=== PATIENT | female | born 1990 | race Caucasian/White ===

== ENCOUNTER 2022-03-14 09:04 | Emergency (ER) | payer OTHER ==
[~2022-03-14] VITALS: Ht 165.1 cm; Wt 77.3 kg
[2022-03-14] MEDS ORDERED: DiphenhydrAMINE HCL 25 MG CAPSULE PO ONE (09:45)
[2022-03-14] MEDS ORDERED: CIPR10DR10 OU (09:52)
[2022-03-14 10:02] VITALS: BP 119/80
== END 2022-03-14 10:20 | disposition home or self-care (01) ==
LOC: EMS 09:06
DX: H10.13 Acute atopic conjunctivitis, bilateral (principal); F17.210 Nicotine dependence, cigarettes, uncomplicated
CPT/HCPCS: 99283

== ENCOUNTER 2024-01-28 23:49 | Inpatient (IN) | payer MEDICAID, OTHER ==
[~2024-01-28] VITALS: Ht 165.1 cm; Wt 73.3 kg
[~2024-01-28 23:49] MED LIST: CIPR10DR10 OU
[2024-01-29 02:20] LABS: BASOPHILS % (AUTO) 0.9 % (0.0-2.0); EOSINOPHILS % (AUTO) 1.9 % (1.0-6.0); HEMATOCRIT 38.6 % (36-46); HEMOGLOBIN 12.8 g/dL (12.0-16.0); LYMPHOCYTES # (AUTO) 3.7 K/uL (1.0-4.8); LYMPHOCYTES % (AUTO) 40.9 % (22.0-44.0); MEAN CORPUSCULAR HEMOGLOBIN 30.4 pg (26.0-34.0); MEAN CORPUSCULAR HGB CONC 33.2 G/dL (31.0-37.0); MEAN CORPUSCULAR VOLUME 92 fL (80-100); MONOCYTES # (AUTO) 0.8 K/uL (0.1-1.0); MONOCYTES % (AUTO) 9.3 % (2.0-9.0); NEUTROPHILS # (AUTO) 4.2 K/uL (1.8-7.7); PLATELET COUNT (AUTO) 353 K/uL (150-450); RED BLOOD CELL COUNT(AUTO) 4.21 MIL/uL (4.00-5.20); RED CELL DISTRIBUTION WIDTH 16.6 % (11.5-14.5)
[2024-01-29] MEDS: LORazepam 2 MG TABLET PO ONE (02:20)
[2024-01-29 02:28] LABS: ANION GAP 11 mmol/L (8-16); CALCIUM, TOTAL 9.1 mg/dL (8.8-10.5); CARBON DIOXIDE 30 mmol/L (22-29); CHLORIDE 101 mmol/L (98-107); CREATININE 0.64 mg/dL (0.60-1.30); GLOMERULAR FILTR. RATE CALC > 60 mL/min (>60); GLUCOSE,RANDOM 114 mg/dL (70-110); POTASSIUM 3.3 mmol/L (3.5-5.1); SODIUM SERUM 142 mmol/L (136-145); UREA NITROGEN, BLOOD 4 mg/dL (7-18)
[2024-01-29 02:34] LABS: ALANINE AMINOTRANSFERASE 59 U/L (12-78); ALBUMIN 3.2 g/dL (3.4-5.0); ALKALINE PHOSPHATASE 112 U/L (46-116); ASPARTATE AMINOTRANSFERASE 55 U/L (15-37); BILIRUBIN,TOTAL 0.1 mg/dL (0.1-1.0)
[2024-01-29 02:35] LABS: ALCOHOL, BLOOD (SERUM) 290 mg/dL (0-10)
[2024-01-29 03:02] LABS: COVID AG,FIA SOURCE NASAL SWAB
[2024-01-29] MEDS: POTASSIUM CHLORIDE 20 MEQ ER TABLET PO ONE ×2 (03:07→18:01)
[2024-01-29 03:22] LABS: SARS-COV2 (COVID) ANTIGEN,FIA Negative (Negative)
[2024-01-29 12:44] VITALS: BP 149/96; PULSE 117; RESP 18; TEMP 98; O2SAT 98
[2024-01-29] MEDS: LORazepam 2 MG TABLET PO PRN (13:25)
[2024-01-29] MEDS ORDERED: ALBUTEROL SULFATE HFA 90 MCG/PUFF 8 GM INHALER IH PRN (17:30)
[2024-01-29] MEDS ORDERED: OMEPRAZOLE 20 MG CAPSULE PO PRN (17:30)
[2024-01-29] MEDS ORDERED: ONDANSETRON HCL 4 MG TABLET PO PRN (17:30)
[2024-01-29] MEDS ORDERED: PETROLATUM,WHITE 28 GM JELLY TP PRN (17:30)
[2024-01-29] MEDS ORDERED: DOCUSATE SODIUM 100 MG CAPSULE PO PRN (17:30)
[2024-01-29] MEDS ORDERED: MAGNESIUM HYDROXIDE SUSPENSION 30 ML UDCUP PO PRN (17:30)
[2024-01-29] MEDS ORDERED: IBUPROFEN 600 MG TABLET PO PRN (17:30)
[2024-01-29] MEDS ORDERED: BENZOCAINE/MENTHOL LOZENGE PO PRN (17:30)
[2024-01-29] MEDS ORDERED: ACETAMINOPHEN 325 MG TABLET PO PRN (17:30)
[2024-01-29] MEDS ORDERED: CloNIDine HCL 0.1 MG TABLET PO PRN (17:30)
[2024-01-29] MEDS ORDERED: BACITRACIN 28 GM OINTMENT TP PRN (17:30)
[2024-01-29 20:55] VITALS: BP 150/100; PULSE 110; RESP 18; TEMP 97.8; O2SAT 97
[2024-01-30] VITALS (7 sets, daily range): BP systolic 141–149; BP diastolic 98–104; PULSE 97–110; RESP 18–20; TEMP 97.3–98.4; O2SAT 97–99
[2024-01-30 15:19] LABS: CHOL/HDL RATIO 2.3 (3.9-5.7); POTASSIUM 3.2 mmol/L (3.5-5.1)
[2024-01-30] MEDS: ChlordiazePOXIDE HCL 25 MG CAPSULE PO PRN (18:11)
[2024-01-30] MEDS ORDERED: CYANOCOBALAMIN 1,000 MCG/ML VIAL IM ONE (19:00)
[2024-01-31] VITALS (7 sets, daily range): BP systolic 143–150; BP diastolic 96–100; PULSE 98–100; RESP 18–20; TEMP 97.5; O2SAT 99–100
[2024-01-31] MEDS ORDERED: ChlordiazePOXIDE HCL 25 MG CAPSULE PO PRN (07:00)
[2024-01-31] MEDS: FOLIC ACID 1 MG TABLET PO SCH (08:55)
[2024-01-31] MEDS: ChlordiazePOXIDE HCL 25 MG CAPSULE PO SCH (08:56)
[2024-01-31] MEDS: MULTIVITAMINS, THERAPEUTIC TABLET PO SCH (08:56)
[2024-01-31] MEDS: THIAMINE 100 MG TABLET PO SCH (08:58)
[2024-01-31] MEDS: DiphenhydrAMINE HCL 50 MG/ML VIAL IM ONE (10:17)
[2024-01-31] MEDS ORDERED: ChlordiazePOXIDE HCL 10 MG CAPSULE PO PRN (10:30)
[2024-01-31] MEDS: ChlordiazePOXIDE HCL 10 MG CAPSULE PO SCH (13:30)
[2024-01-31] MEDS: HALOPERIDOL 5 MG TABLET PO PRN (15:56)
[2024-01-31 16:45] LABS: APPEARANCE,URINE TURBID (CLEAR); BILIRUBIN,URINE NEGATIVE (NEGATIVE); COLOR,URINE YELLOW (YELLOW); GLUCOSE, URINE (UA) NEGATIVE (NEGATIVE); KETONES,URINE NEGATIVE (NEGATIVE); LEUKOCYTE ESTERASE ,URINE TRACE (NEGATIVE); NITRATE,URINE NEGATIVE (NEGATIVE); OCCULT BLOOD,URINE NEGATIVE (NEGATIVE); PH,URINE 7.5 (5.0-8.0); PH,URINE DRUG SCREEN 7.5 (5.0-8.0); PROTEIN,URINE 30-70 mg/dL (NEGATIVE); SPECIFIC GRAVITIY, URINE 1.016 (1.003-1.030); UROBILINOGEN,URINE <=1.0 mg/dL (<=1.0)
[2024-01-31 17:01] LABS: ALCOHOL, URINE DRUG SCREEN NEGATIVE (NEGATIVE); AMPHET/METH SCREEN,URINE NEGATIVE (NEGATIVE); BARBITURATE SCREEN, URINE NEGATIVE (NEGATIVE); BENZODIAZEPINES SCREEN,URINE POSITIVE (NEGATIVE); CANNABINOID SCREEN,URINE POSITIVE (NEGATIVE); COCAINE SCREEN,URINE NEGATIVE (NEGATIVE); METHADONE SCREEN, URINE NEGATIVE (NEGATIVE); OPIATE SCREEN,URINE NEGATIVE (NEGATIVE); PHENCYCLIDINE SCREEN,URINE NEGATIVE (NEGATIVE)
[2024-01-31] MEDS: LITHIUM CARBONATE 300 MG CAPSULE PO SCH (17:02)
[2024-01-31 17:04] LABS: BACTERIA,URINE Few /HPF (None Seen); RBC,URINE 0-2 /HPF (0-2); SQUAMOUS EPITHELIAL CELL,UR Moderate /LPF (None Seen); WBC,URINE 0-2 /HPF (0-5)
[2024-01-31] MEDS: PROPRANOLOL HCL 20 MG TABLET PO SCH (17:12)
[2024-01-31] MEDS: ZOLPIDEM TARTRATE 10 MG TABLET PO PRN (21:25)
[2024-02-01] MEDS ORDERED: ChlordiazePOXIDE HCL 10 MG CAPSULE PO PRN (07:00)
[2024-02-01] MEDS: POTASSIUM CHLORIDE 20 MEQ ER TABLET PO ONE (09:09)
[2024-02-01 11:23] VITALS: BP 125/88; PULSE 99; RESP 18; TEMP 97.3; O2SAT 98
[2024-02-01 11:36] VITALS: BP 125/88; PULSE 99; RESP 18; TEMP 97.3; O2SAT 98
[2024-02-01] MEDS: MAG HYDROX/ALUMINUM HYD/SIMETH ES 30 ML SUSPENSION UDCUP PO PRN (12:54)
[2024-02-01] MEDS: LOPERAMIDE HCL 2 MG CAPSULE PO PRN (13:15)
[2024-02-01] MEDS ORDERED: PROP20TA18 PO (13:26)
[2024-02-01] MEDS ORDERED: LITH300C3 PO (13:26)
[2024-02-02] MEDS ORDERED: ChlordiazePOXIDE HCL 10 MG CAPSULE PO PRN (07:00)
[2024-02-02] MEDS ORDERED: ChlordiazePOXIDE HCL 10 MG CAPSULE PO SCH (09:00)
[2024-02-03] MEDS ORDERED: ChlordiazePOXIDE HCL 10 MG CAPSULE PO PRN (07:00)
== END 2024-02-01 14:12 | disposition home or self-care (01) | DRG 754 ==
LOC: EMS 23:50 → 3EI 01-29 10:02
PROVIDERS: ADMIT Psychiatry & Neurology Psychiatry; ATTEND Psychiatry & Neurology Psychiatry
DX: F32.9 Major depressive disorder, single episode, unspecified (principal); F22 Delusional disorders; F10.229 Alcohol dependence with intoxication, unspecified; F41.9 Anxiety disorder, unspecified; G47.00 Insomnia, unspecified; Z20.822 Contact with and (suspected) exposure to COVID-19; K59.00 Constipation, unspecified; F12.90 Cannabis use, unspecified, uncomplicated; R03.0 Elevated blood-pressure reading, without diagnosis of hypertension; Y90.8 Blood alcohol level of 240 mg/100 ml or more; Z87.891 Personal history of nicotine dependence; Z59.00 Homelessness unspecified
CPT/HCPCS: 80053; 80061; 80307; 81001; 84132; 84703; 85025; 99285; G0480; J1200

== ENCOUNTER 2025-08-12 13:06 | Inpatient (IN) | payer MEDICAID ==
[~2025-08-12] VITALS: Ht 165.1 cm; Wt 75.0 kg
[~2025-08-12 13:06] MED LIST changes: -CIPR10DR10 OU; +LITH300C3 PO; +PROP20TA18 PO
[2025-08-13 00:09] VITALS: BP 128/95; PULSE 107; RESP 20; TEMP 98.9; O2SAT 97
[2025-08-13] MEDS ORDERED: PETROLATUM,WHITE 28 GM JELLY TP PRN (06:00)
[2025-08-13] MEDS ORDERED: ALBUTEROL SULFATE HFA 90 MCG/PUFF 8 GM INHALER IH PRN (06:00)
[2025-08-13] MEDS ORDERED: IBUPROFEN 600 MG TABLET PO PRN (06:00)
[2025-08-13] MEDS ORDERED: BACITRACIN 28 GM OINTMENT TP PRN (06:00)
[2025-08-13] MEDS ORDERED: ACETAMINOPHEN 325 MG TABLET PO PRN (06:00)
[2025-08-13] MEDS ORDERED: MAG HYDROX/ALUMINUM HYD/SIMETH ES 30 ML SUSPENSION UDCUP PO PRN (06:00)
[2025-08-13] MEDS ORDERED: MAGNESIUM HYDROXIDE SUSPENSION 30 ML UDCUP PO PRN (06:00)
[2025-08-13] MEDS ORDERED: LOPERAMIDE HCL 2 MG CAPSULE PO PRN (06:00)
[2025-08-13] MEDS ORDERED: BENZOCAINE/MENTHOL [CEPACOL] LOZENGE PO PRN (06:00)
[2025-08-13] MEDS ORDERED: OMEPRAZOLE 20 MG CAPSULE PO PRN (06:00)
[2025-08-13] MEDS ORDERED: ONDANSETRON 4 MG TABLET PO PRN (06:00)
[2025-08-13] MEDS ORDERED: NICOTINE POLACRILEX 4 MG LOZENGE PO PRN (06:00)
[2025-08-13] MEDS ORDERED: DOCUSATE SODIUM 100 MG CAPSULE PO PRN (06:00)
[2025-08-13 08:21] VITALS: RESP 18
[2025-08-13] MEDS: PROPRANOLOL HCL 20 MG TABLET PO SCH (09:09)
[2025-08-13 09:24] LABS: PLATELET COUNT (AUTO) 194 K/uL (150-450); RED BLOOD CELL COUNT(AUTO) 4.28 MIL/uL (4.00-5.20); RED CELL DISTRIBUTION WIDTH 17.7 % (11.5-14.5); WHITE BLOOD COUNT (AUTO) 8.6 K/uL (4.5-11.0)
[2025-08-13 09:50] LABS: ALCOHOL, BLOOD (SERUM) < 3 mg/dL (0-10)
[2025-08-13 10:08] LABS: ASPARTATE AMINOTRANSFERASE 30 U/L (15-37); CALCIUM, TOTAL 8.6 mg/dL (8.8-10.5); CHOL/HDL RATIO 1.6 (3.9-5.7); CREATININE 0.56 mg/dL (0.60-1.30); GLOMERULAR FILTR. RATE CALC > 60 mL/min (>60); GLUCOSE,RANDOM 77 mg/dL (70-110); HCG,QUANTITATIVE < 1 mIU/mL (0-6); LDL CHOL (CALC.) 44 mg/dL (0-130); SODIUM SERUM 141 mmol/L (136-145); TOTAL PROTEIN, SERUM 6.4 g/dL (6.4-8.2); UREA NITROGEN, BLOOD 7 mg/dL (7-18)
[2025-08-13] MEDS: POTASSIUM CHLORIDE 20 MEQ ER TABLET PO ONE (10:51)
[2025-08-13] MEDS: POTASSIUM CHLORIDE 10% 40 MEQ/30 ML LIQUID UDCUP PO ONE (14:44)
[2025-08-13 20:36] VITALS: RESP 18
[2025-08-14 09:03] VITALS: BP 125/87; PULSE 89; RESP 17; TEMP 98.3; O2SAT 97
[2025-08-14 20:24] VITALS: BP 118/86; PULSE 89; RESP 18; TEMP 97.6; O2SAT 98
[2025-08-15 08:22] VITALS: BP 126/67; PULSE 82; RESP 19; TEMP 98.1; O2SAT 98
[2025-08-15] MEDS: LITHIUM CARBONATE 300 MG CAPSULE PO SCH (16:01)
[2025-08-15 20:16] VITALS: BP 123/80; PULSE 80; RESP 18; TEMP 98.1; O2SAT 100
[2025-08-15] MEDS: ZOLPIDEM TARTRATE 10 MG TABLET PO PRN (22:21)
[2025-08-16 08:42] VITALS: RESP 18
[2025-08-16 10:16] LABS: APPEARANCE,URINE HAZY (CLEAR); GLUCOSE, URINE (UA) NEGATIVE (NEGATIVE); LEUKOCYTE ESTERASE ,URINE LARGE (NEGATIVE); NITRATE,URINE POSITIVE (NEGATIVE); OCCULT BLOOD,URINE SMALL (NEGATIVE); PH,URINE DRUG SCREEN 6.0 (5.0-8.0); SPECIFIC GRAVITIY, URINE 1.021 (1.003-1.030)
[2025-08-16 10:30] LABS: ALCOHOL, URINE DRUG SCREEN NEGATIVE (NEGATIVE); AMPHET/METH SCREEN,URINE NEGATIVE (NEGATIVE); BARBITURATE SCREEN, URINE NEGATIVE (NEGATIVE); CANNABINOID SCREEN,URINE POSITIVE (NEGATIVE); COCAINE SCREEN,URINE NEGATIVE (NEGATIVE); METHADONE SCREEN, URINE NEGATIVE (NEGATIVE)
[2025-08-16 11:26] LABS: SQUAMOUS EPITHELIAL CELL,UR Moderate /LPF (None Seen)
[2025-08-16 13:16] VITALS: BP 129/83; PULSE 94; RESP 18; TEMP 98.8; O2SAT 100
[2025-08-16] MEDS ORDERED: QUET300T19 PO (18:18)
[2025-08-16] MEDS ORDERED: BUSP15TA3 PO (18:18)
[2025-08-16] MEDS ORDERED: SERT-439 PO (18:18)
[2025-08-16] MEDS ORDERED: LAMO150T6 PO (18:18)
[2025-08-16 20:09] VITALS: BP 125/79; PULSE 78; RESP 18; TEMP 98.1; O2SAT 99
[2025-08-17] MEDS: SERTRALINE HCL 50 MG TABLET PO SCH (08:44)
[2025-08-17 20:08] VITALS: BP 106/75; PULSE 79; RESP 18; TEMP 98.2; O2SAT 100
[2025-08-18 08:30] VITALS: BP 112/80; PULSE 84; RESP 18; TEMP 97.9; O2SAT 99
[2025-08-18 12:27] VITALS: BP 105/85; RESP 18; O2SAT 99
[2025-08-18 20:04] VITALS: BP 114/74; PULSE 78; RESP 17; TEMP 97.8; O2SAT 98
[2025-08-19 04:07] LABS: HEPATITIS B CORE IGM Negative (Negative); HEPATITIS C AB (EIA) Non Reactive (Non Reactive)
[2025-08-19 08:20] VITALS: BP 121/78; PULSE 80; RESP 16; TEMP 97.9; O2SAT 100
[2025-08-19] MEDS ORDERED: QUET300T2 PO (08:24)
[2025-08-19] MEDS ORDERED: LAMO-24 PO (08:25)
== END 2025-08-19 13:07 | disposition home or self-care (01) | DRG 753 ==
LOC: B2S 13:52
PROVIDERS: ADMIT Psychiatry & Neurology Psychiatry; ATTEND Psychiatry & Neurology Psychiatry
DX: F31.9 Bipolar disorder, unspecified (principal); Z91.148 Patient's other noncompliance with medication regimen for other reason; R45.851 Suicidal ideations; F41.9 Anxiety disorder, unspecified; G47.00 Insomnia, unspecified; K59.00 Constipation, unspecified; F12.90 Cannabis use, unspecified, uncomplicated; T43.596A Underdosing of other antipsychotics and neuroleptics, initial encounter; E87.6 Hypokalemia; F10.90 Alcohol use, unspecified, uncomplicated; Y90.0 Blood alcohol level of less than 20 mg/100 ml; Z79.899 Other long term (current) drug therapy; Y92.89 Other specified places as the place of occurrence of the external cause
CPT/HCPCS: 80053; 80061; 80074; 80307; 81001; 83036; 84132; 84436; 84443; 84702; 85025; 86592; 87077; 87086; 87186; 87389; 87491; 87591; G0480